=== PATIENT | male | born 1950 | race African-American/Black ===

== ENCOUNTER 2021-01-29 05:21 | Inpatient (IN) | payer MEDICARE, MEDICAID ==
[2021-01-29 05:52] LABS: #Basophils 0.1 10x3/uL (0.0-0.2); #Eosinphils 0.2 10x3/uL (0.0-0.5); #Monocytes 0.7 10x3/uL (0.0-1.1); #Neutrophils 9.8 10x3/uL (1.5-8.4); %Basophils 0.4 % (0.0-2.0); %Eosinophils 1.2 % (0.0-6.0); %Lymphocytes 28.7 % (18.0-47.0); %Monocytes 4.5 % (0.0-10.0); Mean Corpuscular HGB CONC 31.5 g/dL (32.0-36.0); Mean Corpuscular Hemoglobin 29.4 pg (27.0-33.0); Mean Corpuscular Volume 93.4 fl (81.2-95.1); Mean Platelet Volume 10.4 fl (7.4-10.4); Platelet Count 231 10x3/uL (150-450); RBC Distribution Width 14.7 % (11.5-14.5); Red Blood Cell (RBC) Count 4.42 10x6/uL (4.32-5.72); White Blood Cell (WBC) Count 15.6 10x3/uL (3.5-10.5)
[2021-01-29 06:05] LABS: ALT (SGPT) 29 U/L (8-55); AST (SGOT) 23 U/L (5-34); Albumin 3.9 g/dL (3.4-4.8); Alkaline Phosphatase 68 U/L (40-110); Anion Gap 30 mmol/L (10-20); BUN (Urea Nitrogen) 19 mg/dL (8.4-25.7); Bilirubin, Total 0.6 mg/dL (0.2-1.2); Calc. Creatinine Clearance 0 mL/min (70-130); Calcium 8.6 mg/dL (7.8-10.44); Chloride 108 mmol/L (98-107); Globulin 3.1 g/dL (2.4-3.5); Glucose 188 mg/dL (83-110); Potassium 3.8 mmol/L (3.5-5.1); Sodium 143 mmol/L (136-145)
[2021-01-29 06:16] LABS: Carbon Dioxide 9 mmol/L (23-31)
[2021-01-29 06:23] LABS: CKMB 3.3 ng/mL (0-6.6)
[2021-01-29] MEDS ORDERED: Acetaminophen 500 MG TAB ONE (06:25)
[2021-01-29] MEDS ORDERED: Cefepime 2 GM VIAL ONE (06:25)
[2021-01-29 07:16] LABS: Bilirubin Neg (Negative); Blood, Urine 150 (Negative); Clarity Clear (Clear); Glucose, Urine (Dipstick) Normal (Negative); Ketone, Urine Negative (Negative); Leukocyte Negative (Negative); Nitrite Negative (Negative); Protein, Urine (Dipstick) 100 mg/dl (Neg-Trace); Urobilinogen Normal mg/dL (Less than 2)
[2021-01-29 07:27] LABS: Bacteria/HPF 2+ HPF (None Seen); Mucous/LPF 2+ LPF (<2+); Squamous Epithelial 0-3 HPF (0-3); WBC/HPF 0-3 HPF (0-3)
[2021-01-29 07:29] LABS: Actual Bicarbonate (HCO3v) 19 mEq/L (22-28); Base Excess -8.3 mEq/L (-2.0 to +3.0); Calcium, Ionized (venous) 1.18 mmol/L (1.16-1.32); Chloride (VBG) 109 mmol/L (98-106); Hemoglobin (Hb) 13.9 g/dL (12.6-17.4); Potassium (VBG) 3.02 mmol/L (3.70-5.30); Puncture Site Other Site; Sodium 142.5 mmol/L (133-146); pH (venous) 7.25 (7.32-7.43)
[2021-01-29 07:52] LABS: SARS-CoV-2 NAA Rapid Test Not Detected (NotDetected)
[2021-01-29] MEDS ORDERED: ADMIXTURE FEE IVPB SCH (08:00)
[2021-01-29] MEDS ORDERED: SODIUM CHLORIDE IVPB SCH (08:00)
[2021-01-29] MEDS ORDERED: FOSPHENYTOIN SODIUM IVPB SCH (08:00)
[2021-01-29] MEDS ORDERED: Acetaminophen 325 MG TAB PO PRN (08:14)
[2021-01-29] MEDS ORDERED: Senokot S 8.6-50 MG TAB PO PRN (08:14)
[2021-01-29] MEDS ORDERED: Ondansetron PF 4 MG/2 ML Vial IVP PRN (08:14)
[2021-01-29 09:04] LABS: Lactic Acid 5.8 mmol/L (0.5-2.2)
[2021-01-29] MEDS: Sodium Chloride 0.9% 1,000 ML IV SCH ×2 (09:51→16:09)
[2021-01-29 09:59] LABS: Troponin I 1.747 ng/mL (< 0.028)
[2021-01-29 10:20] VITALS: BMI 24.7
[2021-01-29] MEDS ORDERED: Enoxaparin Sodium 40 MG/0.4 ML SYRINGE SC SCH ×2 (11:00→12:00)
[2021-01-29 11:01] LABS: Troponin I 1.826 ng/mL (< 0.028)
[2021-01-29] MEDS: Lorazepam 2 MG/ML VIAL SLOW IVP PRN ×2 (15:59→21:00)
[2021-01-29] MEDS ORDERED: levETIRAcetam in NS 1,000 MG in Premix Bag 1 BAG IVPB SCH (16:00)
[2021-01-29 17:05] VITALS: TEMP 98.4
[2021-01-29 17:54] LABS: CKMB 20.5 ng/mL (0-6.6)
[2021-01-29] MEDS ORDERED: Dextrose 50% Abboject 50 ML SYRINGE ONE (21:09)
[2021-01-29] MEDS ORDERED: Propofol 1,000 MG/100 ML VIAL IV ONE (21:09)
[2021-01-29] MEDS ORDERED: Lorazepam 2 MG/ML VIAL SLOW IVP PRN (21:39)
[2021-01-29] MEDS ORDERED: Lorazepam 2 MG/ML VIAL SLOW IVP SCH (21:45)
[2021-01-29] MEDS ORDERED: levETIRAcetam 500 MG in Sodium Chloride 0.9% 100 ML IVPB SCH (22:00)
[2021-01-30] MEDS: Lorazepam 2 MG/ML VIAL SLOW IVP PRN (01:25)
[2021-01-30] MEDS ORDERED: Midazolam In 0.9 % NaCl/PF 100 ML IVPB PRN (01:30)
[2021-01-30] MEDS ORDERED: Midazolam In 0.9 % NaCl/PF 100 ML IVPB SCH (02:00)
[2021-01-30] MEDS ORDERED: Propofol 1,000 MG/100 ML VIAL IV ONE (02:00)
[2021-01-30] MEDS ORDERED: Propofol 1,000 MG/100 ML VIAL IV PRN ×2 (02:36→02:45)
[2021-01-30 02:48] LABS: Phosphorus 2.7 mg/dL (2.3-4.7)
[2021-01-30 02:57] LABS: #Neutrophils 6.1 10x3/uL (1.5-8.4); %Basophils 0.3 % (0.0-2.0); %Eosinophils 0.2 % (0.0-6.0); %Lymphocytes 18.4 % (18.0-47.0); %Monocytes 11.7 % (0.0-10.0); %Neutrophils 69.2 % (40.0-75.0); Hemoglobin 12.5 g/dL (13.5-17.5); Mean Corpuscular HGB CONC 31.6 g/dL (32.0-36.0); Mean Corpuscular Hemoglobin 29.1 pg (27.0-33.0); Mean Corpuscular Volume 91.9 fl (81.2-95.1); Mean Platelet Volume 10.8 fl (7.4-10.4); Platelet Count 157 10x3/uL (150-450); RBC Distribution Width 15.4 % (11.5-14.5); White Blood Cell (WBC) Count 8.8 10x3/uL (3.5-10.5)
[2021-01-30] MEDS ORDERED: DISCONTINUE PREVIOUS NARCOTIC PAIN MEDICATIONS AND BENZODIAZEPINES FS SCH (03:00)
[2021-01-30] MEDS ORDERED: Meropenem 1 GM in Sodium Chloride 0.9% 100 ML IVPB SCH ×3 (03:00→12:00)
[2021-01-30] MEDS ORDERED: Fentanyl BOLUS 250 ML IVPB PRN (03:00)
[2021-01-30] MEDS ORDERED: Morphine 2 MG/ML VIAL SLOW IVP PRN (03:00)
[2021-01-30] MEDS ORDERED: Propofol BOLUS 1,000 MG/100 ML VIAL IV PRN (03:00)
[2021-01-30] MEDS ORDERED: Lorazepam 2 MG/ML VIAL SLOW IVP PRN (03:00)
[2021-01-30] MEDS ORDERED: fentaNYL Citrate-0.9 % NaCl/PF 100 ML IVPB SCH (03:00)
[2021-01-30] MEDS ORDERED: Ventilator Sedation Protocol 1 EACH FS SCH (03:00)
[2021-01-30 03:05] LABS: Amphetamine Not Detected (NotDetected); Barbiturates Screen Detected (NotDetected); Benzodiazepine Screen Detected (NotDetected); Cocaine Metabolite Screen Not Detected (NotDetected); Methadone Not Detected (NotDetected); Methamphetamine Not Detected (NotDetected); Opiate Screen Not Detected (NotDetected); Oxycodone Screen Not Detected (NotDetected); Phencyclidine (PCP) Not Detected (NotDetected); THC/Cannabinoid Screen Not Detected (NotDetected); Tricyclic Screen Not Detected (NotDetected)
[2021-01-30 03:10] LABS: Anion Gap 17 mmol/L (10-20); BUN (Urea Nitrogen) 13 mg/dL (8.4-25.7); CK (CPK) 2688 U/L (30-200); Calc. Creatinine Clearance 88 mL/min (70-130); Calcium 8.1 mg/dL (7.8-10.44); Carbon Dioxide 18 mmol/L (23-31); Chloride 113 mmol/L (98-107); Glucose 90 mg/dL (83-110); Potassium 4.6 mmol/L (3.5-5.1); Sodium 143 mmol/L (136-145)
[2021-01-30 03:15] LABS: Actual Bicarbonate (HCO3a) 21.6 mEq/L (22-28); Base Excess (BEa) -4.1 mEq/L (-2.0 to +3.0); Calcium, Ionized (arterial) 1.16 mmol/L (1.12-1.30); Carboxyhemoglobin (COHb) 0.2 gm% (0.0-3.0); Critical Notified Whom: RN; Hemoglobin (Hb) 13.2 g/dL (14.0-18.0); O2 Tension (PaO2), arterial 146.6 mmHg (> 70.0); Potassium - ABG Lab 3.6 mmol/L (3.70-5.30); Puncture Site RRA; pH, Arterial 7.33 (7.35-7.45)
[2021-01-30 03:40] VITALS: BP 129/62
[2021-01-30] MEDS ORDERED: ADMIXTURE FEE IVPB SCH (04:00)
[2021-01-30] MEDS ORDERED: SODIUM CHLORIDE IVPB SCH (04:00)
[2021-01-30] MEDS ORDERED: levETIRAcetam in NS 1,000 MG in Premix Bag 1 BAG IVPB SCH (04:00)
[2021-01-30] MEDS ORDERED: ACYCLOVIR SODIUM IVPB SCH (04:00)
[2021-01-30] MEDS ORDERED: Lorazepam 2 MG/ML VIAL SLOW IVP SCH (04:45)
[2021-01-30] MEDS ORDERED: Sodium Chloride 0.9% 1,000 ML IV SCH (04:45)
[2021-01-30] MEDS ORDERED: levETIRAcetam 750 MG, Admixture Fee 1 EACH in Sodium Chloride 0.9% 100 ML IVPB SCH (09:00)
[2021-01-30] MEDS ORDERED: Cefepime 1 GM in Sodium Chloride 0.9% 100 ML IVPB SCH (09:00)
[2021-01-30] MEDS ORDERED: Aspirin 300 MG Suppository PR SCH (09:00)
[2021-01-30] MEDS ORDERED: Vancomycin 1.5 GRAM/300 ML BAG 1 GM in Premix Bag 1 BAG IVPB SCH (09:00)
[2021-01-30] MEDS ORDERED: Enoxaparin Sodium 40 MG/0.4 ML SYRINGE SC SCH (09:00)
[2021-01-30] MEDS ORDERED: FLU VACC QS2021-22(65YR UP)/PF 240 MCG/0.7 ML SYRINGE IM ONE (11:15)
== END 2021-01-30 05:45 | disposition critical access hospital (66) | DRG 100 ==
LOC: CSHERS 05:21 → SUATTDRO 05:21 → CSHIMCU 09:37
PROVIDERS: ADMIT Student in an Organized Health Care Education/Training Program; ATTEND Student in an Organized Health Care Education/Training Program
PROC: 5A1935Z Respiratory Ventilation, Less than 24 Consecutive Hours (ICD-10-PCS; principal; 2021-01-30)
PROC: 0BH18EZ Insertion of Endotracheal Airway into Trachea, Via Natural or Artificial Opening Endoscopic (ICD-10-PCS; 2021-01-30)
DX: G40.901 Epilepsy, unspecified, not intractable, with status epilepticus (principal); G93.41 Metabolic encephalopathy; A41.9 Sepsis, unspecified organism; I21.A1 Myocardial infarction type 2; E87.2 Acidosis; N39.0 Urinary tract infection, site not specified; I50.32 Chronic diastolic (congestive) heart failure; G30.9 Alzheimer's disease, unspecified; F02.80 Dementia in other diseases classified elsewhere, unspecified severity, without behavioral disturbance, psychotic disturbance, mood disturbance, and anxiety; I25.10 Atherosclerotic heart disease of native coronary artery without angina pectoris; E78.5 Hyperlipidemia, unspecified; R77.8 Other specified abnormalities of plasma proteins; E78.00 Pure hypercholesterolemia, unspecified; I11.0 Hypertensive heart disease with heart failure; F20.9 Schizophrenia, unspecified; Z20.822 Contact with and (suspected) exposure to COVID-19; Z88.0 Allergy status to penicillin; Z79.899 Other long term (current) drug therapy; Z79.82 Long term (current) use of aspirin; Z86.73 Personal history of transient ischemic attack (TIA), and cerebral infarction without residual deficits
CPT/HCPCS: 0240U; 36416; 36600; 70450; 71045; 80048; 80053; 80306; 81003; 81015; 82550; 82553; 82805; 83605; 83735; 84100; 84484; 85025; 87040; 87086; 93005; 93010; 93306; 94002; J0133; J0692; J1650; J1953; J2060; J2185; J2704; J3370; J3490; J7050; Q2009